=== PATIENT | male | born 1945 | race Caucasian/White ===

== ENCOUNTER 2020-07-13 07:01 | Inpatient (IN) ==
[2020-07-13] MEDS ORDERED: Ipratropium/Albuterol Neb 3 ML IH ONE (07:38)
[2020-07-13] MEDS ORDERED: Dexamethasone Sodium Phos/PF 10 MG/ML VIAL IVP ONE (07:38)
[2020-07-13 07:46] LABS: Basophils % 0.2 %; Eosinophils % 0.2 %; Immature Granulocytes % 0.3 % (0-4); Mean Corpuscular HGB Conc 32.5 g/dL (31.6-35.5)
[2020-07-13 07:48] LABS: Hematocrit 41.8 % (37.5-50.1); Hemoglobin 13.6 g/dL (12.9-16.9); Lymphocytes # 1.1 K/mcL (0.6-4.6); Lymphocytes % 17.5 %; Mean Corpuscular Volume 86.2 fL (83.0-100.0); Mean Platelet Volume 10.7 fL (9.4-12.4); Monocytes # 0.9 K/mcL (0.0-1.3); Neutrophils # 4.1 K/mcL (1.6-8.9); Platelet Count 109 K/mcL (140-400); Red Blood Count 4.85 M/mcL (4.19-5.50); Red Cell Distribution Width 14.8 % (11.5-14.5); Segmented Neutrophils % 67.8 %; White Blood Count 6.1 K/mcL (4.3-11.1)
[2020-07-13 07:58] LABS: INR 1.1; Prothrombin Time 12.7 Seconds (9.4-12.1)
[2020-07-13 08:00] LABS: Activated Partial Thrombo Time 23.5 Seconds (26.0-36.0)
[2020-07-13 08:06] LABS: Alanine Aminotransferase 13 Units/L (7-52); Albumin 3.5 g/dL (3.5-5.7); Albumin/Globulin Ratio 1.3 (1.1-2.2); Alkaline Phosphatase 62 Units/L (34-104); Aspartate Amino Transferase 22 Units/L (13-39); BUN/Creatinine Ratio 21 (6-26); Bilirubin,Direct 0.3 mg/dL (0.0-0.2); Bilirubin,Indirect 0.9 mg/dL (0.0-1.0); Bilirubin,Total 1.2 mg/dL (0.3-1.0); Blood Urea Nitrogen 31 mg/dL (8-23); Calcium 8.7 mg/dL (8.6-10.3); Carbon Dioxide 25 mEq/L (23-29); Chloride 106 mEq/L (98-107); Globulin 2.6 g/dL (2.4-3.5); Glucose 94 mg/dL (70-105); Lactate Dehydrogenase 260 Units/L (140-271); Magnesium 1.9 mg/dL (1.6-2.6); Osmolality,Calculated 294 (280-300); Phosphorous 2.6 mg/dL (2.7-4.5); Potassium 3.7 mEq/L (3.5-5.1); Sodium 139 mEq/L (136-145); Total Protein 6.1 g/dL (6.4-8.9); Troponin I < 0.03 ng/mL (< 0.04); eGFR For African Americans 55 (> 60); eGFR For Non-African Americans 46 (> 60)
[2020-07-13] MEDS ORDERED: Benzonatate 100 MG CAPSULE PO PRN (08:17)
[2020-07-13] MEDS ORDERED: Benzonatate 100 MG CAPSULE PO ONE (08:18)
[2020-07-13] MEDS ORDERED: *HR* LORazepam 0.5 MG TABLET PO ONE (08:18)
[2020-07-13] MEDS ORDERED: Azithromycin 500 MG in 0.9 % Sodium Chloride 250 ML IVPB ONE (08:19)
[2020-07-13 08:24] LABS: Ferritin 307 ng/mL (20-250)
[2020-07-13] MEDS ORDERED: Naloxone 0.4 MG/ML INJ IVP PRN (09:51)
[2020-07-13] MEDS ORDERED: Ondansetron 4 MG/2 ML VIAL IVP PRN (09:51)
[2020-07-13] MEDS: Ipratropium 1 PUFF INHALER IH SCH ×3 (11:30→22:40)
[2020-07-13 12:05] LABS: C-Reactive Protein 47 mg/L (Less than 10)
[2020-07-13] MEDS: Furosemide 20 MG/2 ML VIAL IVP SCH (12:21)
[2020-07-13] MEDS: Acetaminophen 325 MG TABLET PO PRN (22:21)
[2020-07-14] MEDS: Acetaminophen 325 MG TABLET PO PRN (03:25)
[2020-07-14] MEDS: Ipratropium 1 PUFF INHALER IH SCH ×5 (04:06→23:59)
[2020-07-14] MEDS: *HR* Enoxaparin 40 MG/0.4 ML SYRINGE SQ SCH (05:33)
[2020-07-14 05:42] LABS: Red Cell Distribution Width 14.8 % (11.5-14.5)
[2020-07-14 05:44] LABS: Hematocrit 38.6 % (37.5-50.1); Hemoglobin 12.7 g/dL (12.9-16.9); Immature Granulocytes % 0.6 % (0-4); Immature Platelets 4.2 % (1.1-6.1); Lymphocytes # 1.1 K/mcL (0.6-4.6); Lymphocytes % 15.7 %; Mean Corpuscular HGB Conc 32.9 g/dL (31.6-35.5); Mean Corpuscular Hemoglobin 28.3 pg (28.0-33.3); Mean Platelet Volume 10.9 fL (9.4-12.4); Monocytes # 0.7 K/mcL (0.0-1.3); Monocytes % 10.5 %; Neutrophils # 5.1 K/mcL (1.6-8.9); Platelet Count 112 K/mcL (140-400); Red Blood Count 4.49 M/mcL (4.19-5.50); Segmented Neutrophils % 73.2 %; White Blood Count 6.9 K/mcL (4.3-11.1)
[2020-07-14 05:58] LABS: INR 1.2; Prothrombin Time 13.9 Seconds (9.4-12.1)
[2020-07-14 06:04] LABS: Calcium 7.9 mg/dL (8.6-10.3); Magnesium 1.9 mg/dL (1.6-2.6); Phosphorous 3.8 mg/dL (2.7-4.5); Potassium 4.1 mEq/L (3.5-5.1)
[2020-07-14] MEDS: Furosemide 20 MG/2 ML VIAL IVP SCH (08:12)
[2020-07-14] MEDS: Dexamethasone 4 MG/ML VIAL IVP SCH (08:12)
[2020-07-14] MEDS ORDERED: Acetaminophen IV 1,000 MG/100 ML BAG IVPB ONE (16:14)
[2020-07-14] MEDS ORDERED: Ibuprofen 800 MG TABLET PO ONE (18:13)
[2020-07-14] MEDS: Acetaminophen IV 1,000 MG/100 ML BAG IVPB SCH (23:23)
[2020-07-15] MEDS: Ipratropium 1 PUFF INHALER IH SCH ×5 (03:49→20:42)
[2020-07-15 05:26] LABS: Basophils % 0.2 %; Hemoglobin 13.5 g/dL (12.9-16.9); Immature Granulocytes % 0.5 % (0-4); Lymphocytes # 0.9 K/mcL (0.6-4.6); Lymphocytes % 14.6 %; Mean Corpuscular HGB Conc 32.1 g/dL (31.6-35.5); Mean Corpuscular Hemoglobin 27.8 pg (28.0-33.3); Mean Corpuscular Volume 86.6 fL (83.0-100.0); Mean Platelet Volume 10.9 fL (9.4-12.4); Monocytes # 0.7 K/mcL (0.0-1.3); Monocytes % 11.6 %; Neutrophils # 4.6 K/mcL (1.6-8.9); Platelet Count 115 K/mcL (140-400); Red Blood Count 4.85 M/mcL (4.19-5.50); Red Cell Distribution Width 14.7 % (11.5-14.5); Segmented Neutrophils % 73.1 %; White Blood Count 6.3 K/mcL (4.3-11.1)
[2020-07-15 05:27] LABS: Immature Platelets 4.7 % (1.1-6.1)
[2020-07-15 05:33] LABS: Fibrinogen 489 mg/dL (169-393)
[2020-07-15 05:35] LABS: D-Dimer 772 ng/mLFEU (0-500)
[2020-07-15 05:45] LABS: Calcium 8.3 mg/dL (8.6-10.3); Potassium 3.6 mEq/L (3.5-5.1)
[2020-07-15] MEDS: *HR* Enoxaparin 40 MG/0.4 ML SYRINGE SQ SCH (06:07)
[2020-07-15] MEDS: Furosemide 20 MG/2 ML VIAL IVP SCH (08:39)
[2020-07-15] MEDS: allopurinoL 300 MG TABLET PO SCH (08:40)
[2020-07-15] MEDS: Dexamethasone 4 MG/ML VIAL IVP SCH (08:40)
[2020-07-15] MEDS: Acetaminophen IV 1,000 MG/100 ML BAG IVPB SCH ×2 (08:41→15:47)
[2020-07-15] MEDS: NIFEdipine XL (24 HR) 60 MG TAB.ER.24 PO SCH (13:02)
[2020-07-15] MEDS ORDERED: *HR* Dextrose 50 % in Water (Vial) 50 ML VIAL IVP PRN (22:33)
[2020-07-15] MEDS ORDERED: Dextrose Gel 15 GM/37.5 ML TUBE PO PRN ×2 (22:33)
[2020-07-15] MEDS ORDERED: D5% in Water 1,000 ML IVC PRN (22:33)
[2020-07-16] MEDS: Ipratropium 1 PUFF INHALER IH SCH ×7 (00:28→23:53)
[2020-07-16] MEDS: Acetaminophen 325 MG TABLET PO PRN ×2 (02:58→10:57)
[2020-07-16 05:36] LABS: Hematocrit 39.8 % (37.5-50.1); Hemoglobin 13.2 g/dL (12.9-16.9); Immature Granulocytes % 0.5 % (0-4); Lymphocytes # 1.3 K/mcL (0.6-4.6); Lymphocytes % 13.9 %; Mean Corpuscular HGB Conc 33.2 g/dL (31.6-35.5); Mean Corpuscular Hemoglobin 28.1 pg (28.0-33.3); Mean Corpuscular Volume 84.9 fL (83.0-100.0); Mean Platelet Volume 10.7 fL (9.4-12.4); Monocytes # 0.7 K/mcL (0.0-1.3); Neutrophils # 7.4 K/mcL (1.6-8.9); Platelet Count 158 K/mcL (140-400); Red Blood Count 4.69 M/mcL (4.19-5.50); Red Cell Distribution Width 14.6 % (11.5-14.5); Segmented Neutrophils % 78.6 %; White Blood Count 9.4 K/mcL (4.3-11.1)
[2020-07-16 05:56] LABS: Calcium 7.9 mg/dL (8.6-10.3); Magnesium 1.9 mg/dL (1.6-2.6); Potassium 3.8 mEq/L (3.5-5.1)
[2020-07-16] MEDS: *HR* Enoxaparin 40 MG/0.4 ML SYRINGE SQ SCH (05:57)
[2020-07-16] MEDS ORDERED: Insulin LISPRO 300 UNITS/3 ML VIAL SUBQ SCH ×2 (07:30→21:00)
[2020-07-16] MEDS: Furosemide 20 MG/2 ML VIAL IVP SCH (07:33)
[2020-07-16] MEDS: allopurinoL 300 MG TABLET PO SCH (07:33)
[2020-07-16] MEDS: Dexamethasone 4 MG/ML VIAL IVP SCH (07:33)
[2020-07-16] MEDS: NIFEdipine XL (24 HR) 60 MG TAB.ER.24 PO SCH (07:33)
[2020-07-16 13:37] LABS: Albumin/Globulin Ratio 1.2 (1.1-2.2); Bilirubin,Direct 0.4 mg/dL (0.0-0.2); Bilirubin,Indirect 1.1 mg/dL (0.0-1.0); Bilirubin,Total 1.5 mg/dL (0.3-1.0); Globulin 2.6 g/dL (2.4-3.5); Total Protein 5.6 g/dL (6.4-8.9)
[2020-07-16] MEDS ORDERED: Remdesivir 200 MG in 0.9 % Sodium Chloride 100 ML IVPB ONE (15:30)
[2020-07-16] MEDS ORDERED: Dexamethasone 4 MG/ML VIAL IVP ONE (17:15)
[2020-07-17] MEDS: Ipratropium 1 PUFF INHALER IH SCH ×5 (04:03→20:41)
[2020-07-17] MEDS: *HR* Enoxaparin 40 MG/0.4 ML SYRINGE SQ SCH (05:21)
[2020-07-17 05:23] LABS: Hematocrit 38.8 % (37.5-50.1); Mean Corpuscular HGB Conc 33.5 g/dL (31.6-35.5); Mean Corpuscular Volume 83.4 fL (83.0-100.0); Mean Platelet Volume 10.3 fL (9.4-12.4); Platelet Count 152 K/mcL (140-400); Red Blood Count 4.65 M/mcL (4.19-5.50); Red Cell Distribution Width 14.6 % (11.5-14.5)
[2020-07-17 05:34] LABS: INR 1.2; Prothrombin Time 13.9 Seconds (9.4-12.1)
[2020-07-17 05:48] LABS: Albumin 3.2 g/dL (3.5-5.7); Albumin/Globulin Ratio 1.1 (1.1-2.2); Bilirubin,Total 1.2 mg/dL (0.3-1.0); Calcium 8.2 mg/dL (8.6-10.3); Globulin 2.8 g/dL (2.4-3.5); Potassium 3.8 mEq/L (3.5-5.1)
[2020-07-17] MEDS: Dexamethasone 4 MG/ML VIAL IVP SCH (09:17)
[2020-07-17] MEDS: allopurinoL 300 MG TABLET PO SCH (09:18)
[2020-07-17] MEDS: Remdesivir 100 MG in 0.9 % Sodium Chloride 100 ML IVPB SCH (16:53)
[2020-07-18] MEDS: Ipratropium 1 PUFF INHALER IH SCH ×7 (00:34→23:42)
[2020-07-18 01:23] LABS: Hematocrit 41.3 % (37.5-50.1); Hemoglobin 13.4 g/dL (12.9-16.9); Mean Corpuscular HGB Conc 32.4 g/dL (31.6-35.5); Mean Corpuscular Hemoglobin 27.7 pg (28.0-33.3); Mean Corpuscular Volume 85.3 fL (83.0-100.0); Mean Platelet Volume 10.8 fL (9.4-12.4); Platelet Count 169 K/mcL (140-400); Red Blood Count 4.84 M/mcL (4.19-5.50); Red Cell Distribution Width 14.4 % (11.5-14.5); White Blood Count 7.8 K/mcL (4.3-11.1)
[2020-07-18 01:31] LABS: INR 1.3; Prothrombin Time 14.6 Seconds (9.4-12.1)
[2020-07-18 01:43] LABS: Albumin/Globulin Ratio 1.2 (1.1-2.2); Bilirubin,Total 1.4 mg/dL (0.3-1.0); Globulin 2.6 g/dL (2.4-3.5); Total Protein 5.6 g/dL (6.4-8.9)
[2020-07-18] MEDS: *HR* Enoxaparin 40 MG/0.4 ML SYRINGE SQ SCH (05:51)
[2020-07-18] MEDS: Dexamethasone 4 MG/ML VIAL IVP SCH (10:10)
[2020-07-18] MEDS: allopurinoL 300 MG TABLET PO SCH (10:10)
[2020-07-18] MEDS: Remdesivir 100 MG in 0.9 % Sodium Chloride 100 ML IVPB SCH (17:29)
[2020-07-19] MEDS: Ipratropium 1 PUFF INHALER IH SCH ×5 (04:33→20:39)
[2020-07-19] MEDS: *HR* Enoxaparin 40 MG/0.4 ML SYRINGE SQ SCH (06:41)
[2020-07-19 07:08] LABS: Hematocrit 40.1 % (37.5-50.1); Hemoglobin 13.5 g/dL (12.9-16.9); Mean Corpuscular HGB Conc 33.7 g/dL (31.6-35.5); Mean Corpuscular Hemoglobin 28.5 pg (28.0-33.3); Mean Corpuscular Volume 84.6 fL (83.0-100.0); Mean Platelet Volume 10.8 fL (9.4-12.4); Platelet Count 178 K/mcL (140-400); Red Blood Count 4.74 M/mcL (4.19-5.50); Red Cell Distribution Width 14.4 % (11.5-14.5); White Blood Count 9.5 K/mcL (4.3-11.1)
[2020-07-19 07:17] LABS: INR 1.3; Prothrombin Time 14.7 Seconds (9.4-12.1)
[2020-07-19 07:29] LABS: Albumin/Globulin Ratio 1.2 (1.1-2.2); Bilirubin,Total 1.2 mg/dL (0.3-1.0); Globulin 2.6 g/dL (2.4-3.5); Potassium 4.1 mEq/L (3.5-5.1); Total Protein 5.6 g/dL (6.4-8.9)
[2020-07-19] MEDS: Dexamethasone 4 MG/ML VIAL IVP SCH (08:34)
[2020-07-19] MEDS: allopurinoL 300 MG TABLET PO SCH (08:34)
[2020-07-19] MEDS: Remdesivir 100 MG in 0.9 % Sodium Chloride 100 ML IVPB SCH (16:29)
[2020-07-19] MEDS: Acetaminophen IV 1,000 MG/100 ML BAG IVPB SCH (19:59)
[2020-07-20] MEDS: Ipratropium 1 PUFF INHALER IH SCH ×7 (00:18→23:39)
[2020-07-20 05:39] LABS: Hematocrit 39.5 % (37.5-50.1); Hemoglobin 13.2 g/dL (12.9-16.9); Mean Corpuscular HGB Conc 33.4 g/dL (31.6-35.5); Mean Corpuscular Hemoglobin 28.3 pg (28.0-33.3); Mean Corpuscular Volume 84.8 fL (83.0-100.0); Mean Platelet Volume 10.6 fL (9.4-12.4); Platelet Count 164 K/mcL (140-400); Red Blood Count 4.66 M/mcL (4.19-5.50); Red Cell Distribution Width 14.6 % (11.5-14.5); White Blood Count 9.5 K/mcL (4.3-11.1)
[2020-07-20 05:44] LABS: INR 1.3
[2020-07-20] MEDS: *HR* Enoxaparin 40 MG/0.4 ML SYRINGE SQ SCH (05:57)
[2020-07-20 06:17] LABS: Albumin 2.8 g/dL (3.5-5.7); Albumin/Globulin Ratio 1.1 (1.1-2.2); Bilirubin,Total 1.1 mg/dL (0.3-1.0); Calcium 7.8 mg/dL (8.6-10.3); Globulin 2.5 g/dL (2.4-3.5); Potassium 4.5 mEq/L (3.5-5.1); Total Protein 5.3 g/dL (6.4-8.9)
[2020-07-20] MEDS: allopurinoL 300 MG TABLET PO SCH (09:51)
[2020-07-20] MEDS: Dexamethasone 4 MG/ML VIAL IVP SCH (09:52)
[2020-07-20] MEDS: Remdesivir 100 MG in 0.9 % Sodium Chloride 100 ML IVPB SCH (17:13)
[2020-07-20] MEDS ORDERED: Melatonin 3 MG TABLET PO PRN (23:20)
[2020-07-21] MEDS: Ipratropium 1 PUFF INHALER IH SCH ×3 (04:25→11:36)
[2020-07-21 04:43] VITALS: BP 146/81
[2020-07-21] MEDS: *HR* Enoxaparin 40 MG/0.4 ML SYRINGE SQ SCH (06:07)
[2020-07-21] MEDS: allopurinoL 300 MG TABLET PO SCH (08:37)
== END 2020-07-21 16:12 | disposition home or self-care (01) | DRG 871 ==
LOC: 2NENU 07:01 → EMEROOARM 07:01 → 2NENU 10:23 → SUATTDRO 13:10
PROVIDERS: ADMIT Student in an Organized Health Care Education/Training Program; ATTEND Internal Medicine

== ENCOUNTER 2021-09-08 23:44 | Observation (INO) ==
[2021-09-09] MEDS ORDERED: Isovue-370 500 ML BOTTLE IVP ONE (01:28)
[2021-09-09 01:30] LABS: Basophils % 0.4 %; Hemoglobin 15.8 g/dL (12.9-16.9); Red Cell Distribution Width 14.5 % (11.5-14.5)
[2021-09-09 01:32] LABS: Eosinophils # 0.3 K/mcL (0.0-0.6); Eosinophils % 2.4 %; Hematocrit 47.6 % (37.5-50.1); Immature Granulocytes % 0.3 % (0-4); Immature Platelets 6.5 % (1.1-6.1); Lymphocytes # 3.1 K/mcL (0.6-4.6); Mean Corpuscular HGB Conc 33.2 g/dL (31.6-35.5); Mean Corpuscular Hemoglobin 28.7 pg (28.0-33.3); Mean Corpuscular Volume 86.4 fL (83.0-100.0); Mean Platelet Volume 11.3 fL (9.4-12.4); Monocytes # 0.8 K/mcL (0.0-1.3); Monocytes % 7.2 %; Neutrophils # 6.8 K/mcL (1.6-8.9); Red Blood Count 5.51 M/mcL (4.19-5.50); Segmented Neutrophils % 61.7 %
[2021-09-09 01:33] LABS: Platelet Count 99 K/mcL (140-400)
[2021-09-09 01:41] LABS: INR 1.2; Prothrombin Time 13.1 Seconds (9.4-12.1)
[2021-09-09 01:44] LABS: Activated Partial Thrombo Time 31.3 Seconds (26.0-36.0)
[2021-09-09 01:55] LABS: BUN/Creatinine Ratio 19 (6-26); Blood Urea Nitrogen 30 mg/dL (8-23); Calcium 8.8 mg/dL (8.6-10.3); Carbon Dioxide 26 mEq/L (23-29); Chloride 103 mEq/L (98-107); Glucose 102 mg/dL (70-105); Osmolality,Calculated 288 (280-300); Potassium 3.8 mEq/L (3.5-5.1); Sodium 136 mEq/L (136-145); Troponin I < 0.03 ng/mL (< 0.04); eGFR For African Americans 52 (> 60); eGFR For Non-African Americans 43 (> 60)
[2021-09-09] MEDS: Nitroglycerin 0.4 MG TAB.SUBL SL PRN ×3 (01:58→02:10)
[2021-09-09 02:49] LABS: Alanine Aminotransferase < 3 Units/L (7-52); Albumin 4.1 g/dL (3.5-5.7); Albumin/Globulin Ratio 1.8 (1.1-2.2); Alkaline Phosphatase 94 Units/L (34-104); Aspartate Amino Transferase 12 Units/L (13-39); Bilirubin,Direct 0.3 mg/dL (0.0-0.2); Bilirubin,Indirect 1.6 mg/dL (0.0-1.0); Bilirubin,Total 1.9 mg/dL (0.3-1.0); Globulin 2.3 g/dL (2.4-3.5); Lipase 18 Units/L (11-82); Total Protein 6.4 g/dL (6.4-8.9)
[2021-09-09] MEDS ORDERED: Aspirin 325 MG TABLET PO ONE (03:43)
[2021-09-09] MEDS ORDERED: Naloxone 0.4 MG/ML INJ IVP PRN (04:29)
[2021-09-09] MEDS ORDERED: Melatonin 3 MG TABLET PO PRN (04:29)
[2021-09-09] MEDS ORDERED: Acetaminophen 325 MG TABLET PO PRN (04:29)
[2021-09-09] MEDS ORDERED: Perflutren Lipid Microsphere 1.3 ML in 0.9 % Sodium Chloride 8.7 ML IVP PRN (04:32)
[2021-09-09 04:44] LABS: Influenza A PCR Negative (Negative); Influenza B PCR Negative (Negative); Resp. Syncytial Virus PCR Negative (Negative)
[2021-09-09 04:46] LABS: SARS-CoV-2 by PCR (In House) Negative (Negative)
[2021-09-09] MEDS ORDERED: Regadenoson 0.4 MG/5 ML SYRINGE IVP ONE (06:19)
[2021-09-09] MEDS ORDERED: Dextrose Gel 15 GM/37.5 ML TUBE PO PRN ×2 (06:36)
[2021-09-09] MEDS ORDERED: D5% in Water 1,000 ML IVC PRN (06:36)
[2021-09-09] MEDS ORDERED: *HR* Dextrose 50 % in Water (Syg) 50 ML SYRINGE IVP PRN (06:36)
[2021-09-09 07:01] LABS: Hematocrit 44.7 % (37.5-50.1); Immature Platelets 5.2 % (1.1-6.1); Mean Corpuscular HGB Conc 33.6 g/dL (31.6-35.5); Mean Corpuscular Hemoglobin 29.2 pg (28.0-33.3); Mean Platelet Volume 11.4 fL (9.4-12.4); Red Blood Count 5.14 M/mcL (4.19-5.50); Red Cell Distribution Width 14.5 % (11.5-14.5); White Blood Count 8.1 K/mcL (4.3-11.1)
[2021-09-09 07:07] LABS: INR 1.2; Prothrombin Time 13.7 Seconds (9.4-12.1)
[2021-09-09] MEDS: Carbidopa/Levodopa 25/100 TABLET PO SCH ×3 (08:16→21:08)
[2021-09-09 09:13] LABS: Chol/HDL Ratio 2.3 (0-4.9); Magnesium 1.9 mg/dL (1.6-2.6); Phosphorous 3.2 mg/dL (2.7-4.5); Thyroid Stimulating Hormone 1.733 mcIU/mL (0.340-5.600)
[2021-09-09 09:18] LABS: Calcium 8.9 mg/dL (8.6-10.3); Potassium 3.8 mEq/L (3.5-5.1)
[2021-09-09 12:05] LABS: Estimated Average Glucose 108 mg/dl; Hemoglobin A1C 5.4 %
[2021-09-10 02:05] LABS: Immature Granulocytes % 0.2 % (0-4); Mean Corpuscular HGB Conc 33.4 g/dL (31.6-35.5); Mean Corpuscular Hemoglobin 29.4 pg (28.0-33.3); Red Cell Distribution Width 14.6 % (11.5-14.5)
[2021-09-10 02:07] LABS: Basophils % 0.5 %; Eosinophils # 0.3 K/mcL (0.0-0.6); Eosinophils % 3.2 %; Hemoglobin 14.7 g/dL (12.9-16.9); Immature Platelets 5.4 % (1.1-6.1); Lymphocytes # 2.9 K/mcL (0.6-4.6); Lymphocytes % 35.5 %; Mean Platelet Volume 11.6 fL (9.4-12.4); Monocytes # 0.7 K/mcL (0.0-1.3); Monocytes % 8.8 %; Neutrophils # 4.2 K/mcL (1.6-8.9); Segmented Neutrophils % 51.8 %; White Blood Count 8.1 K/mcL (4.3-11.1)
[2021-09-10 02:14] LABS: Platelet Count 89 K/mcL (140-400)
[2021-09-10 02:22] LABS: Calcium 8.5 mg/dL (8.6-10.3); Potassium 3.7 mEq/L (3.5-5.1)
[2021-09-10 03:25] VITALS: O2SAT 97
[2021-09-10 06:54] VITALS: PULSE 53; TEMP 98.2
[2021-09-10] MEDS: Carbidopa/Levodopa 25/100 TABLET PO SCH (08:46)
[2021-09-10 08:49] VITALS: BP 159/84
[2021-09-10] MEDS ORDERED: Aspirin 81 MG TAB.CHEW PO SCH (09:00)
== END 2021-09-10 10:14 | disposition home or self-care (01) ==
LOC: EMEROOARM 23:44 → 3BNU 23:44 → SUATTDRO 09-09 04:19 → 3BNU 09-09 05:50
PROVIDERS: ADMIT Internal Medicine; ATTEND Internal Medicine